=== PATIENT | male | born 1990 | race Two or more races ===

== ENCOUNTER 2021-03-01 15:40 | Inpatient (IN) | payer BC, OTHER, SELFPAY ==
[~2021-03-01] VITALS: Ht 172.7 cm; Wt 101.0 kg
[2021-03-01] MEDS ORDERED: FLUO10CA16 PO ×2 (16:01→22:20)
[2021-03-01] MEDS ORDERED: HYDR50TA70 PO ×2 (16:01→22:20)
[2021-03-01 16:42] LABS: BASO % 0.3 % (0.0-1.0); EOS # 0.1 10^3/uL (0.0-0.5); EOS % 0.9 % (0.0-3.0); HEMATOCRIT 44.7 % (42.0-52.0); HEMOGLOBIN 14.7 g/dl (13.5-17.5); LYMPH # 1.8 10^3/uL (1.5-5.0); LYMPH % 17.8 % (24.0-44.0); MEAN CORPUSCULAR HEMOGLOBIN 27.5 pg (27.0-33.0); MEAN CORPUSCULAR HGB CONC 32.9 g/dl (32.0-36.5); MEAN CORPUSCULAR VOLUME 83.7 fl (80.0-96.0); MONO # 0.9 10^3/uL (0.0-0.8); MONO % 8.3 % (2.0-8.0); NEUTROPHILS # 7.4 10^3/uL (1.5-8.5); NEUTROPHILS % 72.2 % (36.0-66.0); PLATELET COUNT, AUTOMATED 252 10^3/uL (150-450); RED BLOOD COUNT 5.34 10^6/uL (4.30-6.10); WHITE BLOOD COUNT 10.3 10^3/uL (4.0-10.0)
[2021-03-01] MEDS: NS 1,000 ML IV SCH ×2 (16:46→22:51)
[2021-03-01 17:12] LABS: ACETAMINOPHEN LEVEL < 2.0 UG/ML (10.0-30.0); ALBUMIN 3.9 GM/DL (3.2-5.2); ALT/SGPT 34 U/L (12-78); BILIRUBIN,DIRECT < 0.1 MG/DL (0.0-0.2); BILIRUBIN,TOTAL 0.3 MG/DL (0.2-1.0); BLOOD UREA NITROGEN 18 MG/DL (7-18); CALCIUM LEVEL 8.5 MG/DL (8.5-10.1); CARBON DIOXIDE LEVEL 25 MEQ/L (21-32); CHLORIDE LEVEL 110 MEQ/L (98-107); CPK CREATINE PHOSPHOKINASE 441 U/L (39-308); CREATININE FOR GFR 1.24 MG/DL (0.70-1.30); GLOMERULAR FILTRATION RATE > 60.0 (>60); GLUCOSE, FASTING 82 MG/DL (70-100); POTASSIUM SERUM 4.1 MEQ/L (3.5-5.1); SALICYLATE LEVEL < 1.7 MG/DL (5.0-30.0); SODIUM LEVEL 141 MEQ/L (136-145); THYROID STIMULATING HORMONE 0.741 uIU/ML (0.358-3.740); TOTAL PROTEIN 7.1 GM/DL (6.4-8.2)
[2021-03-01 17:13] LABS: ETHYL ALCOHOL (ETHANOL) < 0.003 % (0.000-0.010)
[2021-03-01 18:48] LABS: AMPHETAMINES LEVEL URINE NEGATIVE (NEGATIVE); BARBITURATES URINE NEGATIVE (NEGATIVE); BENZODIAZEPINES URINE NEGATIVE (NEGATIVE); CANNABINOIDS URINE NEGATIVE (NEGATIVE); COCAINE METABOLITE URINE NEGATIVE (NEGATIVE); METHADONE URINE NEGATIVE (NEGATIVE); OPIATES URINE NEGATIVE (NEGATIVE); PHENCYCLIDINE URINE NEGATIVE (NEGATIVE)
[2021-03-01] MEDS ORDERED: HOME MED LIST COMPLETE! XX SCH (22:25)
[2021-03-02 00:47] LABS: RSV AMPLIFICATION NEGATIVE (NEGATIVE)
[2021-03-02] MEDS ORDERED: MOM 30ML SUSPENSION UDC PO PRN (01:40)
[2021-03-02] MEDS ORDERED: MAALOX 30 ML SUSP *UDC PO PRN (01:40)
[2021-03-02] MEDS ORDERED: ACETAMINOPHEN TAB 650MG DOSE (2X325MG) PO PRN (01:40)
[2021-03-02 02:15] VITALS: BP 135/89
--- NOTE | 2021-03-02 07:55 | ECGEPIP ---
[facility] - ED Test Date: 2021-03-01 Pat Name: BRENT LOVELACE Department: Room: - Gender: Male Medical Transcription Supervisor: JAS : 1990 Requested By: JANA Chase Order Number: [id number] Reading MD: Baljinder Santiago Measurements Intervals [place] Rate: 83 P: 13 [place]: 140 QRS: 58 QRSD: 96 T: 2 QT: 408 QTc: 479 Interpretive Statements Normal sinus rhythm Nonspecific T wave abnormality Prolonged QT NO PRIORS FOR COMPARISON Electronically Signed on 03-02-2021 7:55:00 EDT by Baljinder Santiago
--- NOTE | 2021-03-02 08:03 | ECGEPIP ---
[facility] - ED Test Date: 2021-03-01 Pat Name: BRENT LOVELACE Department: Room: [place] [address] Gender: Male Seamer Operator: SHANDRA : 1990 Requested By: GHAZALA Angeles Order Number: [id number] Reading MD: Baljinder Santiago Measurements Intervals [place] Rate: 56 P: 19 AL: 128 QRS: 69 QRSD: 106 T: 29 QT: 476 QTc: 459 Interpretive Statements Sinus bradycardia with sinus arrhythmia Nonspecific T wave abnormality SIMILAR TO PRIOR ON SAME DATE Electronically Signed on 03-02-2021 8:02:44 EDT by Baljinder Santiago
[2021-03-02 08:36] VITALS: BP 146/80
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
[2021-03-02] MEDS: hydrOXYzine 50 MG TAB PO SCH ×2 (11:58→20:34)
[2021-03-02] MEDS: FLUoxetine 10 MG CAP PO SCH (11:59)
[2021-03-02 16:35] VITALS: BP 131/74
[2021-03-02] MEDS: traZODone 50 MG TAB PO PRN (20:35)
[2021-03-03 06:45] VITALS: BP 112/71
[2021-03-03] MEDS: FLUoxetine 10 MG CAP PO SCH (09:04)
[2021-03-03] MEDS: hydrOXYzine 50 MG TAB PO SCH ×2 (09:04→20:33)
--- NOTE | 2021-03-03 10:31 | HPEPDOC ---
[facility] Medical History & Physical Date of Admission Mar 03, 2021 Date of Service: Mar 03, 2021 History and Physical CHIEF COMPLAINT: "I tried to kill myself" HISTORY OF PRESENT ILLNESS: 31-year-old male with a past medical history of depression and suicidal ideations presented to the hospital after he consumed alcohol and subsequently try to commit suicide by taking Advil and hydroxyzine. He reported he began to drink and made this attempt around 4 AM and woke up the next day around noon by a phone call by his clinical systems educator. he reports he did this because of all the events that took place in his life. Presently, he denied feeling suicidal and said his mood was " okay". He denies headaches, chest pain, shortness of breath, abdominal pain, nausea, vomiting, problems with urination and bowel movements. He denies fevers, chills, arthralgias, and myalgias. PAST MEDICAL HISTORY: Psychiatric history as mentioned above. PAST SURGICAL HISTORY: Denies SOCIAL HISTORY: He reports having a rough upbringing. He now lives alone and maintains a job at [employer]. He endorses smoking a vape, drinking daily, and using marijuana at times. FAMILY HISTORY: Denies any family history ALLERGIES: Please see below. REVIEW OF SYSTEMS: 10 point review of system negative except for what is noted in the HPI HOME MEDICATIONS: Please see below. PHYSICAL EXAMINATION: General: Lying in bed, no acute distress Head/Neck/Throat: Trachea midline, mucous membranes moist Eyes: Sclera anicteric, PERRLA Thorax: Normal respiratory effort on room air, lungs clear to auscultation bilaterally, no wheezes/rales/rhonchi Cardiovascular: Normal rate, regular rhythm, normal S1, S2; no S3, S4, rubs/gallops/murmurs Abdomen: Bowel sounds present, soft/nontender/nondistended Genitourinary: No CVA tenderness, no Gutiérrez in place Musculoskeletal: Moving all extremities, no edema Skin: Warm, dry Neurologic: AAOx3, speech fluent and goal-directed, no focal deficits, grossly intact LABORATORY DATA: See below. IMAGING: None in EMR for this visit. MICROBIOLOGY: Please see below. ASSESSMENT/PLAN: #Elevated creatinine kind -Likely secondary to his drinking and being found on the ground. Presently denies myalgias. Repeat creatinine kinase as well as BMP to ensure levels are trending down and renal function is stable, respectfully. Encouraged hydration. #Suicide attempt -Management as per psychiatric team. #Polysubstance abuse -Encouraged abstinence from smoking, drinking, and recreational drugs. #DVT prophylaxis -Encourage ambulation Patient was seen and examined with a female wardrobe custodian Vital Signs Vital Signs Date Time Temp Pulse Resp B/P (MAP) Pulse Ox O2 Delivery O2 Flow Rate FiO2 03/03/21 06:45 97.8 68 18 112/71 (85) 100 Room Air Home Medications Scheduled Fluoxetine Hcl (Fluoxetine HCl) 10 Mg Capsule, 10 MG PO DAILY Hydroxyzine HCl (Hydroxyzine HCl) 50 Mg Tablet, 50 MG PO BID Allergies Coded Allergies: No Known Allergies (Unverified , 03/01/21) A-FIB/CHADSVASC A-FIB History Current/History of A-Fib/PAF?: No GAYLE LYNCH M.D. Mar 03, 2021 10:24
--- NOTE | 2021-03-03 10:58 | MHIPNPDOC ---
[facility] Progress Note Progress Note DATE OF SERVICE: 03/03/21 Patient is on n.p.o. waiting for ultrasound and is fully cooperating with treatment. He is in no acute distress and smiling later and maintaining good control. He is denying any more suicidal plan or intent and is cooperating with his medications and has no new complaints. HISTORY:. VITAL SIGNS: See below. NEW TEST RESULTS:. CURRENT MEDICATIONS: See below. MENTAL STATUS EXAMINATION: Patient is a 31-year old male, who is in good control. Speech: Is relevant. Language skills are fair. Thought processes including: Rational. Thought content: Denies any suicidal plan or intent. Abstract reasoning, and computation: Fair. Description of associations: Organized. Description of abnormal or psychotic thoughts: Denies any psychotic symptoms. Judgment: Poor. Insight: Fair. Orientation: Oriented. Recent and remote memory: No gross impairment. Attention span and concentration: Fair. Language:. Fund of knowledge:. Mood: Moderately anxious and depressed. Affect: Appropriate. DIAGNOSES: 1.. Major depression 2.. 3.. ASSESSMENT: Cooperating with the treatment MANAGEMENT PLAN: Needs stabilization. TIME SPENT: 50 minutes. Vital Signs Vital Signs Date Time Temp Pulse Resp B/P (MAP) Pulse Ox O2 Delivery O2 Flow Rate FiO2 03/03/21 06:45 97.8 68 18 112/71 (85) 100 Room Air Current Medications Current Medications Medications (Trade) Dose Ordered Sig/Desi Route PRN Reason Start Time Stop Time Status Last Admin Dose Admin Acetaminophen (Tylenol Tab) 650 mg Q6HP PRN PO HEADACHE or MILD DISCOMFORT 03/02/21 01:40 Al Hydrox/Mg Hydrox/Simethicone (Mylanta) 30 ml Q4HP PRN PO HEARTBURN/INDIGESTION 03/02/21 01:40 Fluoxetine HCl (PROzac) 10 mg DAILY PO 03/02/21 09:00 03/03/21 09:04 Home Med (Home Med List Complete!) ASDIRECTED XX 03/01/21 22:25 03/01/21 22:23 DC Hydroxyzine HCl (Atarax) 50 mg BID PO 03/02/21 09:00 03/03/21 09:04 Lorazepam (Ativan) 1 mg Q4HP PRN PO ANXIETY/AGITATION 03/02/21 01:40 Magnesium Hydroxide (Milk Of Magnesia) 30 ml DAILYPRN PRN PO CONSTIPATION 03/02/21 01:40 Sodium Chloride 1,000 ml @ 150 mls/hr Q6H40M IV 03/01/21 16:20 03/01/21 22:53 DC 03/01/21 16:46 Trazodone HCl (Desyrel) 50 mg QHSP PRN PO INSOMNIA 03/02/21 01:40 03/02/21 20:35 Allergies Coded Allergies: No Known Allergies (Unverified , 03/01/21) REMY BARAKAT M.D. Mar 03, 2021 10:58
[2021-03-03 16:51] VITALS: BP 140/92
[2021-03-03] MEDS: traZODone 50 MG TAB PO PRN (20:33)
[2021-03-04 05:38] VITALS: BP 142/80
[2021-03-04] MEDS: hydrOXYzine 50 MG TAB PO SCH ×2 (08:36→20:35)
[2021-03-04] MEDS: FLUoxetine 10 MG CAP PO SCH (08:36)
--- NOTE | 2021-03-04 09:16 | REP ---
INDICATION: ABNORMAL FINDINGS ON DX IMAGING OF LIVER AND BILIA. COMPARISON: None. TECHNIQUE: Multiple ultrasonographic images of the abdominal right upper quadrant. FINDINGS: There is no cholelithiasis, gallbladder wall thickening or pericholecystic fluid. There is no intrahepatic or extrahepatic biliary duct dilatation. The common biliary duct measures 3.3 mm in diameter. There are limited views of the pancreas, the tail is obscured by bowel gas. The visualized areas of the pancreatic head and body are unremarkable. The right kidney is normal size measuring 11.8 x 5.9 x 4.9 cm. There is no right renal calculus, hydronephrosis, cystic mass or solid mass. There is no right upper quadrant free fluid. IMPRESSION: Essentially negative abdominal right upper quadrant ultrasound. The pancreatic tail is obscured by bowel gas. Clinical history states abnormal findings on DX imaging of the liver and BILIA. There are no comparison DX studies in our film file. <Electronically signed by Emmett Turner > 03/04/21 0941
--- NOTE | 2021-03-04 10:20 | MHIPNPDOC ---
[facility] Progress Note Progress Note DATE OF SERVICE: 03/04/21 Patient is reporting no new complaint and is fully cooperating with treatment. He had an ultrasound done and is eating and is pleasant on approach and respondi ng appropriately. He admits to taking overdose as a suicidal attempt but not able to elaborate the reason. He is tolerating Prozac okay and stated that he is feeling all right and does not have any active suicidal plan or thoughts at this time. We will increase his Prozac to 20 mg and continue with the supportive therapy HISTORY:. VITAL SIGNS: See below. NEW TEST RESULTS:. CURRENT MEDICATIONS: See below. MENTAL STATUS EXAMINATION: Patient is a 31-year old male, who is in no acute distress. Speech: Is relevant. Language skills are fair. Thought processes including: Coherent. Thought content: Denies any active suicidal thoughts. Abstract reasoning, and co mputation:. Description of associations: Organized. Description of abnormal or psychotic thoughts: Denies any hallucination or paranoia. Judgment: Fair. Insight: [Fair. Orientation: Oriented. Recent and remote memory: No gross impairment. Attention span and concentration:. Language:. Fund of knowledge:. Mood: Not feeling as depressed. Affect: Appropriate. DIAGNOSES: 1.. Major depression 2.. 3.. ASSESSMENT: Cooperating with the treatment and maintaining good control MANAGEMENT PLAN: Continue with increased the Prozac and supportive therapy. TIME SPENT: 15 minutes. Vital Signs Vital Signs Date Time Temp Pulse Resp B/P (MAP) Pulse Ox O2 Delivery O2 Flow Rate FiO2 03/04/21 05:38 98.7 64 18 142/80 (100) 100 Room Air Current Medications Current Medications Medications (Trade) Dose Ordered Sig/Desi Route PRN Reason Start Time Stop Time Status Last Admin Dose Admin Acetaminophen (Tylenol Tab) 650 mg Q6HP PRN PO HEADACHE or MILD DISCOMFORT 03/02/21 01:40 Al Hydrox/Mg Hydrox/Simethicone (Mylanta) 30 ml Q4HP PRN PO HEARTBURN/INDIGESTION 03/02/21 01:40 Fluoxetine HCl (PROzac) 10 mg DAILY PO 03/02/21 09:00 03/04/21 08:36 Home Med (Home Med List Complete!) ASDIRECTED XX 03/01/21 22:25 03/01/21 22:23 DC Hydroxyzine HCl (Atarax) 50 mg BID PO 03/02/21 09:00 03/04/21 08:36 Lorazepam (Ativan) 1 mg Q4HP PRN PO ANXIETY/AGITATION 03/02/21 01:40 Magnesium Hydroxide (Milk Of Magnesia) 30 ml DAILYPRN PRN PO CONSTIPATION 03/02/21 01:40 Sodium Chloride 1,000 ml @ 150 mls/hr Q6H40M IV 03/01/21 16:20 03/01/21 22:53 DC 03/01/21 16:46 Trazodone HCl (Desyrel) 50 mg QHSP PRN PO INSOMNIA 03/02/21 01:40 03/03/21 20:33 Allergies Coded Allergies: No Known Allergies (Unverified , 03/01/21) REMY BARAKAT M.D. Mar 04, 2021 10:20
[2021-03-04 16:37] VITALS: BP 138/72
[2021-03-04] MEDS: LORazepam 1 MG TAB PO PRN (16:53)
[2021-03-04] MEDS: traZODone 50 MG TAB PO PRN (20:35)
[2021-03-05 07:41] VITALS: BP 130/70
[2021-03-05] MEDS: FLUoxetine 20 MG CAP PO SCH (08:13)
[2021-03-05] MEDS: hydrOXYzine 50 MG TAB PO SCH ×2 (08:13→21:14)
--- NOTE | 2021-03-05 14:06 | MHIPNPDOC ---
[facility] Progress Note Progress Note DATE OF SERVICE: 03/05/21 HISTORY: Patient is a 31 -year-old single, , domiciled, male, who took an overdose of a bottle of Advil and hydroxyzine 50 mg x 10 tablets as a suicide attempt. Patient reports that he has had depression for many years states that his depression increased approximately 2 years ago. Patient has a legal history currently on probation for sexual offense of having possible pornography of underage people. Patient lives alone states that he had been drinking beer and at 3:30 in the morning he went to [employer] got a bottle of Advil and took 10 tablets of his hydroxyzine 50 mg as a suicide attempt. States he fell asleep and was awaken by phone call by his body care manager Constance. He told her about his suicide attempt in she called the police. He reports no other suicidal gestures or attempts in the past. States that his stressors are being on probation and his history of legal issues. PER ED REPORT: Pt was brought to the ED by his body care manager after taking an OD as a suicide attempt. Pt states that he took an OD of two bottles of Advil PM & 10 hydroxyzine at around 0500 as a suicide attempt. He states that his body care manager, Constance Mccollum from [facility], called him to check on him & he told her about the OD so she brought him to the ED. Pt denies HI. He denies any hx of suicide attempts or self-harm. Pt denies both AH & VH. He does not appear to be psychotic. Pt c/o depressed mood, anxiety, & poor sleep. When asked about stressors pt states "everything" but is unable to identify anything specific, other than that he is currently on probation for a sex offense. Pt reports a hx of depression, anxiety, & PTSD with no admissions. He has OP tx at [facility]. Pt reports daily MJ use, however, his tox screen was negative. He reports that he uses alcohol twice a month. VITAL SIGNS: See below. CURRENT MEDICATIONS: See below. MENTAL STATUS EXAMINATION: Patient is a 31 -year-old single, , domiciled, male, who took an overdose of a bottle of Advil and hydroxyzine 50 mg x 10 tablets as a suicide attempt. Speech: Is fluid, minimal conversation normal rate, tone and volume Language skills are intact Thought processes including: linear and goal oriented Thought content: reports depression and anxiety. Denies homicidal ideation, planning or intent.Admits to continued fleeting suicidal ideations, wanting to be . Abstract reasoning, and computation: fair Description of associations: denies, none observed Description of abnormal or psychotic thoughts: denies, none observed. Judgment: fair Insight: fair Orientation: alert and oriented to person, place, time and situation Recent and remote memory: intact Attention span and concentration: good Language: expansive Fund of knowledge: average Mood: Depressed Mood Affect: reactive DIAGNOSES: Major depressive disorder, single episode, severe Status post suicide attempt by overdose PTSD per history Generalized anxiety disorder per history sleep disturbance per history Tobacco use disorder Alcohol use disorder Cannabis use disorder ASSESSMENT: In today's interview patient reports continued fleeting suicidal ideations. States that he is fearful that he is facing senior living sentencing for his crimes. Supportive therapies and motivational interviewing today with patient. Patient was able to list off trauma stressors and states that much of his subsequent bad choices stems from his PTSD. Patient encouraged to use positive thinking. Reports continued depression and anxiety and intermittent poor sleep. He was reported to be isolative and withdrawn over the weekend. MANAGEMENT PLAN: Continue all medications and supportive therapies. Patient complains of Trazodone. Will discontinue and start Mirtazapine 7.5 mg. Probable discharge this week. TIME SPENT: 25 minutes. Vital Signs Vital Signs Date Time Temp Pulse Resp B/P (MAP) Pulse Ox O2 Delivery O2 Flow Rate FiO2 03/05/21 07:41 97.3 77 16 130/70 (90) 100 Room Air Current Medications Current Medications Medications (Trade) Dose Ordered Sig/Desi Route PRN Reason Start Time Stop Time Status Last Admin Dose Admin Acetaminophen (Tylenol Tab) 650 mg Q6HP PRN PO HEADACHE or MILD DISCOMFORT 03/02/21 01:40 Al Hydrox/Mg Hydrox/Simethicone (Mylanta) 30 ml Q4HP PRN PO HEARTBURN/INDIGESTION 03/02/21 01:40 Fluoxetine HCl (PROzac) 10 mg DAILY PO 03/02/21 09:00 03/04/21 10:18 DC 03/04/21 08:36 Fluoxetine HCl (PROzac) 20 mg DAILY PO 03/05/21 09:00 03/05/21 08:13 Home Med (Home Med List Complete!) ASDIRECTED XX 03/01/21 22:25 8/5/21 22:23 DC Hydroxyzine HCl (Atarax) 50 mg BID PO 03/02/21 09:00 03/05/21 08:13 Lorazepam (Ativan) 1 mg Q4HP PRN PO ANXIETY/AGITATION 03/02/21 01:40 03/04/21 16:53 Magnesium Hydroxide (Milk Of Magnesia) 30 ml DAILYPRN PRN PO CONSTIPATION 03/02/21 01:40 Sodium Chloride 1,000 ml @ 150 mls/hr Q6H40M IV 03/01/21 16:20 03/01/21 22:53 DC 03/01/21 16:46 Trazodone HCl (Desyrel) 50 mg QHSP PRN PO INSOMNIA 03/02/21 01:40 03/04/21 20:35 Allergies Coded Allergies: No Known Allergies (Unverified , 03/01/21) KANWAL MCNULTY NP Mar 05, 2021 13:59
[2021-03-05 16:30] VITALS: BP 158/100
[2021-03-05] MEDS: MIRTAZAPINE 7.5MG PER 1/2 TABLET PO SCH (21:14)
[2021-03-06 07:06] VITALS: BP_SYST 140; BP_SYST 147; BP_DIAS 87; BP_DIAS 91
[2021-03-06] MEDS: hydrOXYzine 50 MG TAB PO SCH ×2 (08:57→20:39)
[2021-03-06] MEDS: FLUoxetine 20 MG CAP PO SCH (08:57)
--- NOTE | 2021-03-06 11:34 | MHIPNPDOC ---
[facility] Progress Note Progress Note DATE OF SERVICE: 03/06/21 HISTORY: Patient is a 31 -year-old single, , domiciled, male, who took an overdose of a bottle of Advil and hydroxyzine 50 mg x 10 tablets as a suicide attempt. Patient reports that he has had depression for many years states that his depression increased approximately 2 years ago. Patient has a legal history currently on probation for sexual offense of having possible pornography of underage people. Patient lives alone states that he had been drinking beer and at 3:30 in the morning he went to [employer] got a bottle of Advil and took 10 tablets of his hydroxyzine 50 mg as a suicide attempt. States he fell asleep and was awaken by phone call by his complex care nurse practitioner Constance. He told her about his suicide attempt in she called the police. He reports no other suicidal gestures or attempts in the past. States that his stressors are being on probation and his history of legal issues. PER ED REPORT: Pt was brought to the ED by his child daycare worker after taking an OD as a suicide attempt. Pt states that he took an OD of two bottles of Advil PM & 10 hydroxyzine at around 0500 as a suicide attempt. He states that his child daycare worker, Constance Mccollum from [facility], called him to check on him & he told her about the OD so she brought him to the ED. Pt denies HI. He denies any hx of suicide attempts or self-harm. Pt denies both AH & VH. He does not appear to be psychotic. Pt c/o depressed mood, anxiety, & poor sleep. When asked about stressors pt states "everything" but is unable to identify anything specific, other than that he is currently on probation for a sex offense. Pt reports a hx of depression, anxiety, & PTSD with no admissions. He has OP tx at [facility]. Pt reports daily MJ use, however, his tox screen was negative. He reports that he uses alcohol twice a month. VITAL SIGNS: See below. CURRENT MEDICATIONS: See below. MENTAL STATUS EXAMINATION: Patient is a 31 -year-old single, , domiciled, male, who took an overdose of a bottle of Advil and hydroxyzine 50 mg x 10 tablets as a suicide attempt. Speech: Is fluid, minimal conversation normal rate, tone and volume Language skills are intact Thought processes including: linear and goal oriented Thought content: reports 8/10 depression and no anxiety. Denies homicidal ideation, planning or intent.Admits to continued fleeting suicidal ideations, wanting to be . Abstract reasoning, and computation: fair Description of associations: denies, none observed Description of abnormal or psychotic thoughts: denies, none observed. Judgment: fair Insight: fair Orientation: alert and oriented to person, place, time and situation Recent and remote memory: intact Attention span and concentration: good Language: expansive Fund of knowledge: average Mood: Depressed Mood Affect: reactive DIAGNOSES: Major depressive disorder, single episode, severe Status post suicide attempt by overdose PTSD per history Generalized anxiety disorder per history sleep disturbance per history Tobacco use disorder Alcohol use disorder Cannabis use disorder ASSESSMENT: In today's interview patient reports continued depression which he rates an 8/10. He was awakened for this interview and was very somber and disengaged. He had minimal responses in the interview. Patient reports that he is normally an 8 out of 10 depression. Patient reports excessive sleeping while he has been in the hospital. He denied suicidal ideation MANAGEMENT PLAN: Continue all medications and supportive therapies. Patient complains of Trazodone. Will discontinue and start Mirtazapine 7.5 mg. Probable discharge . TIME SPENT: 25 minutes. Vital Signs Vital Signs Date Time Temp Pulse Resp B/P (MAP) Pulse Ox O2 Delivery O2 Flow Rate FiO2 03/06/21 07:06 97.5 60 20 140/91 (107) 99 Room Air Current Medications Current Medications Medications (Trade) Dose Ordered Sig/Desi Route PRN Reason Start Time Stop Time Status Last Admin Dose Admin Acetaminophen (Tylenol Tab) 650 mg Q6HP PRN PO HEADACHE or MILD DISCOMFORT 03/02/21 01:40 Al Hydrox/Mg Hydrox/Simethicone (Mylanta) 30 ml Q4HP PRN PO HEARTBURN/INDIGESTION 03/02/21 01:40 Fluoxetine HCl (PROzac) 10 mg DAILY PO 03/02/21 09:00 03/04/21 10:18 DC 03/04/21 08:36 Fluoxetine HCl (PROzac) 20 mg DAILY PO 03/05/21 09:00 03/06/21 08:57 Home Med (Home Med List Complete!) ASDIRECTED XX 03/01/21 22:25 03/01/21 22:23 DC Hydroxyzine HCl (Atarax) 50 mg BID PO 03/02/21 09:00 03/06/21 08:57 Lorazepam (Ativan) 1 mg Q4HP PRN PO ANXIETY/AGITATION 03/02/21 01:40 03/04/21 16:53 Magnesium Hydroxide (Milk Of Magnesia) 30 ml DAILYPRN PRN PO CONSTIPATION 03/02/21 01:40 Mirtazapine (Remeron) 7.5 mg QHS PO 03/05/21 21:00 03/05/21 21:14 Sodium Chloride 1,000 ml @ 150 mls/hr Q6H40M IV 03/01/21 16:20 03/01/21 22:53 DC 03/01/21 16:46 Trazodone HCl (Desyrel) 50 mg QHSP PRN PO INSOMNIA 03/02/21 01:40 03/05/21 14:02 DC 03/04/21 20:35 Allergies Coded Allergies: No Known Allergies (Unverified , 03/01/21) KANWAL MCNULTY TANNING WHEEL OPERATOR Mar 06, 2021 11:34
[2021-03-06 18:16] VITALS: BP 138/88
[2021-03-06] MEDS: LORazepam 1 MG TAB PO PRN (20:39)
[2021-03-06] MEDS: MIRTAZAPINE 7.5MG PER 1/2 TABLET PO SCH (20:39)
[2021-03-07] MEDS: FLUoxetine 20 MG CAP PO SCH (08:47)
[2021-03-07] MEDS: hydrOXYzine 50 MG TAB PO SCH ×2 (08:47→20:35)
--- NOTE | 2021-03-07 14:04 | MHIPNPDOC ---
[facility] Progress Note Progress Note DATE OF SERVICE: 03/07/21 HISTORY: Patient is a 31 -year-old single, , domiciled, male, who took an overdose of a bottle of Advil and hydroxyzine 50 mg x 10 tablets as a suicide attempt. Patient reports that he has had depression for many years states that his depression increased approximately 2 years ago. Patient has a legal history currently on probation for sexual offense of having possible pornography of underage people. Patient lives alone states that he had been drinking beer and at 3:30 in the morning he went to [employer] got a bottle of Advil and took 10 tablets of his hydroxyzine 50 mg as a suicide attempt. States he fell asleep and was awaken by phone call by his child care team lead Constance. He told her about his suicide attempt in she called the police. He reports no other suicidal gestures or attempts in the past. States that his stressors are being on probation and his history of legal issues. PER ED REPORT: Pt was brought to the ED by his patient care associate after taking an OD as a suicide attempt. Pt states that he took an OD of two bottles of Advil PM & 10 hydroxyzine at around 0500 as a suicide attempt. He states that his patient care associate, Constance Mccollum from [facility], called him to check on him & he told her about the OD so she brought him to the ED. Pt denies HI. He denies any hx of suicide attempts or self-harm. Pt denies both AH & VH. He does not appear to be psychotic. Pt c/o depressed mood, anxiety, & poor sleep. When asked about stressors pt states "everything" but is unable to identify anything specific, other than that he is currently on probation for a sex offense. Pt reports a hx of depression, anxiety, & PTSD with no admissions. He has OP tx at [facility]. Pt reports daily MJ use, however, his tox screen was negative. He reports that he uses alcohol twice a month. VITAL SIGNS: See below. CURRENT MEDICATIONS: See below. MENTAL STATUS EXAMINATION: Patient is a 31 -year-old single, , domiciled, male, who took an overdose of a bottle of Advil and hydroxyzine 50 mg x 10 tablets as a suicide attempt. Speech: Is fluid, minimal conversation normal rate, tone and volume Language skills are intact Thought processes including: linear and goal oriented Thought content: continues to report 8/10 depression and no anxiety. Denies suicidal h/micidal ideation, planning or intent. Abstract reasoning, and computation: fair Description of associations: denies, none observed Description of abnormal or psychotic thoughts: denies, none observed. Judgment: fair Insight: fair Orientation: alert and oriented to person, place, time and situation Recent and remote memory: intact Attention span and concentration: good Language: expansive Fund of knowledge: average Mood: Euthymic Mood Affect: Constricted DIAGNOSES: Major depressive disorder, single episode, severe Status post suicide attempt by overdose PTSD per history Generalized anxiety disorder per history sleep disturbance per history Tobacco use disorder Alcohol use disorder Cannabis use disorder ASSESSMENT: Patient reports that his depression is at baseline, he reported in yesterday's session that his baseline depression rating is 8/10. He has been minimally social with peers, attending and participating in groups. He was started on his home medication of Prozac and that was increased to 20 mg during this hospitalization. He did not reported any anxiety during the interview. He denies suicidal ideations. States that his plans are to return to work but wants to clean his apartment. Spoke with Psychiatric Rn who has left messages for Nutritionalist and his Plant Reliability Engineer who is picking him up tomorrow. Patient states that he works 50+ a week. Patient is somewhat detached and reports no to low supports. He reports that he feels that he may be incarcerated for legal charges. It appears that much of this suicidal ideations stems from this. Ironically patients' labs and blood alcohol content does not support his report that he had been drinking and took an overdose of two bottles of Advil PM, lab results had low salicylate levels and he had a negative alcohol content. MANAGEMENT PLAN: Continue all medications and supportive therapies. Discharge . TIME SPENT: 25 minutes. Vital Signs Vital Signs Date Time Temp Pulse Resp B/P (MAP) Pulse Ox O2 Delivery O2 Flow Rate FiO2 03/06/21 18:16 97.8 95 16 138/88 (105) 97 03/06/21 07:06 Room Air Current Medications Current Medications Medications (Trade) Dose Ordered Sig/Desi Route PRN Reason Start Time Stop Time Status Last Admin Dose Admin Acetaminophen (Tylenol Tab) 650 mg Q6HP PRN PO HEADACHE or MILD DISCOMFORT 03/02/21 01:40 Al Hydrox/Mg Hydrox/Simethicone (Mylanta) 30 ml Q4HP PRN PO HEARTBURN/INDIGESTION 03/02/21 01:40 Fluoxetine HCl (PROzac) 10 mg DAILY PO 03/02/21 09:00 03/04/21 10:18 DC 03/04/21 08:36 Fluoxetine HCl (PROzac) 20 mg DAILY PO 03/05/21 09:00 03/07/21 08:47 Home Med (Home Med List Complete!) ASDIRECTED XX 03/01/21 22:25 03/01/21 22:23 DC Hydroxyzine HCl (Atarax) 50 mg BID PO 03/02/21 09:00 03/07/21 08:47 Lorazepam (Ativan) 1 mg Q4HP PRN PO ANXIETY/AGITATION 03/02/21 01:40 03/06/21 20:39 Magnesium Hydroxide (Milk Of Magnesia) 30 ml DAILYPRN PRN PO CONSTIPATION 03/02/21 01:40 Mirtazapine (Remeron) 7.5 mg QHS PO 03/05/21 21:00 03/06/21 20:39 Sodium Chloride 1,000 ml @ 150 mls/hr Q6H40M IV 03/01/21 16:20 03/01/21 22:53 DC 03/01/21 16:46 Trazodone HCl (Desyrel) 50 mg QHSP PRN PO INSOMNIA 03/02/21 01:40 03/05/21 14:02 DC 03/04/21 20:35 Allergies Coded Allergies: No Known Allergies (Unverified , 03/01/21) KANWAL MCNULTY WAREHOUSE DELIVERY DRIVER Mar 07, 2021 14:04
[2021-03-07 17:41] VITALS: BP 125/64
[2021-03-07] MEDS: MIRTAZAPINE 7.5MG PER 1/2 TABLET PO SCH (20:35)
[2021-03-08 06:23] VITALS: BP 124/76
[2021-03-08] MEDS: FLUoxetine 20 MG CAP PO SCH (08:54)
[2021-03-08] MEDS: hydrOXYzine 50 MG TAB PO SCH (08:54)
[2021-03-08] MEDS ORDERED: MIRT-62 PO (12:21)
[2021-03-08] MEDS ORDERED: FLUO20CA22 PO (12:21)
[2021-03-08] MEDS ORDERED: HYDR50TA70 PO (12:22)
--- NOTE | 2021-03-08 14:58 | MHDSPDOC ---
[facility] Discharge Summary Discharge Summary DATE OF ADMISSION: Mar 02, 2021 at 01:39 DATE OF DISCHARGE: Mar 08, 2021 at 13:25 DISCHARGE DIAGNOSES: Major depressive disorder, single episode, severe Status post suicide attempt by overdose PTSD per history Generalized anxiety disorder per history sleep disturbance per history Tobacco use disorder Alcohol use disorder Cannabis use disorder REASON FOR ADMISSION: Patient is a 31 -year-old single, , domiciled, male, who took an overdose of a bottle of Advil and hydroxyzine 50 mg x 10 tablets as a suicide attempt. Patient reports that he has had depression for many years states that his depression increased approximately 2 years ago. Patient has a legal history currently on probation for sexual offense of having possible pornography of underage people. Patient lives alone states that he had been drinking beer and at 3:30 in the morning he went to [employer] got a bottle of Advil and took 10 tablets of his hydroxyzine 50 mg as a suicide attempt. States he fell asleep and was awaken by phone call by his animal caretaker supervisor Constance. He told her about his suicide attempt in she called the police. He reports no other suicidal gestures or attempts in the past. States that his stressors are being on probation and his history of legal issues. PER ED REPORT: Pt was brought to the ED by his rn acute care after taking an OD as a suicide attempt. Pt states that he took an OD of two bottles of Advil PM & 10 hydroxyzine at around 0500 as a suicide attempt. He states that his rn acute care, Constance Mccollum from [facility], called him to check on him & he told her about the OD so she brought him to the ED. Pt denies HI. He denies any hx of suicide attempts or self-harm. Pt denies both AH & VH. He does not appear to be psychotic. Pt c/o depressed mood, anxiety, & poor sleep. When asked about stressors pt states "everything" but is unable to identify anything specific, other than that he is currently on probation for a sex offense. Pt reports a hx of depression, anxiety, & PTSD with no admissions. He has OP tx at [facility]. Pt reports daily MJ use, however, his tox screen was negative. He reports that he uses alcohol twice a month. VITAL SIGNS: See below. CONSULTANTS INVOLVED: See Medical H + P by Hospitalist TREATMENT AND PROGRESS ON THE UNIT: Patient was admitted to the [facility] on a 9.39 legal status he was afforded the following treatment modalities: 1) Individual Therapy 2) Group Therapy 3) Medication Management 4) Milieu Therapy 5) Safe Environment HOSPITAL COURSE: Patient was admitted to [facility] on a 9.39 legal status. He was restarted on his home medications with an increase of his Fluoxetine. He did not tolerate Trazodone and complained of feeling tight in his chest. Mirtazapine 7.5 mg ordered for sleep. Pt found medications beneficial and tolerated them well. Much of his anxiety stemmed from his legal charges and fear of incarceration and poor supportive people in his life. He reported that his mood, anxiety, and intrusive thoughts improved with treatment. Pt attended groups daily during stay. Pts symptoms improved with treatment. On day of discharge he denied depression, anxiety, insomnia, SI/HI, hallucinations, delusions. Pt was discharged home with follow-up with [facility]. Pt felt safe for discharge. DISCHARGE ASSESSMENT: In today's interview, patient is alert and oriented, pts dress is appropriate. Hygiene and grooming is well-kempt. Smiles on approach and is pleasant and engaged in the interview. Denies depression and anxiety. Denies suicidal and homicidal ideation, planning or intent. Denies and is not observed with miriam, psychotic symptoms of delusions, bizarre thinking, obsessions, paranoia, ruminations illogical thoughts, flight of ideas or having poor insight and judgement. Patient has normal mentation, declines further hospitalization on a voluntary status and meets criteria for discharge today. Patient encouraged to return to hospital if symptoms worsen or change and encouraged to call unit if he/she/they needs to speak to provider for questions regarding medications or care. MENTAL STATUS EXAMINATION ON DISCHARGE: Patient is a 31 -year-old single, , domiciled, male, who took an overdose of a bottle of Advil and hydroxyzine 50 mg x 10 tablets as a suicide attempt. Speech: Is fluid, minimal conversation normal rate, tone and volume Language skills are intact Thought processes including: linear and goal oriented Thought content: continues to report 8/10 depression and no anxiety. Denies suicidal/homicidal ideation, planning or intent. Abstract reasoning, and computation: fair Description of associations: denies, none observed Description of abnormal or psychotic thoughts: denies, none observed. Judgment: fair Insight: fair Orientation: alert and oriented to person, place, time and situation Recent and remote memory: intact Attention span and concentration: good Language: expansive Fund of knowledge: average Mood: Euthymic Mood Affect: Constricted MEDICATIONS ON DISCHARGE: See Medication Reconciliation PLAN/FOLLOWUP ARRANGEMENTS: Patient being discharged to home, his insurance case manager Constance is picking him up and he was a follow up appointment at [facility]. The amount of time spent in the coordination of care for this patient was appro ximately 25 minutes. ETOH/Disorder Med Rx ETOH/DRUG DISORDER RX: Offrd @ d/c & pt refused Vital Signs/I&Os Vital Signs Date Time Temp Pulse Resp B/P (MAP) Pulse Ox O2 Delivery O2 Flow Rate FiO2 03/08/21 06:23 97.8 56 18 124/76 (92) 98 Room Air Medications Scheduled Fluoxetine Hcl (Fluoxetine HCl) 20 Mg Capsule, 20 MG PO DAILY for Depression, #7 Mirtazapine (Remeron) 15 Mg Tablet, 7.5 MG PO QHS for Insomnia, #5 Take 1/2 tablet at bedtime Scheduled PRN Hydroxyzine HCl (Hydroxyzine HCl) 50 Mg Tablet, 50 MG PO BIDP PRN for ANXIETY/AGITATION, #14 Allergies Coded Allergies: No Known Allergies (Unverified , 03/01/21) KANWAL MCNULTY NP Mar 08, 2021 14:31
== END 2021-03-08 13:25 | disposition home or self-care (01) | DRG 751 ==
LOC: M ED 15:40 → M PSY 03-02 01:39 → UNDOADMIN 03-02 01:39 → M ED INP 03-02 01:39 → M PSY 03-06 16:40
PROVIDERS: ADMIT Psychiatry & Neurology Psychiatry; ATTEND Psychiatry & Neurology Psychiatry
DX: F32.2 Major depressive disorder, single episode, severe without psychotic features (principal); F43.10 Post-traumatic stress disorder, unspecified; F41.1 Generalized anxiety disorder; F17.290 Nicotine dependence, other tobacco product, uncomplicated; F12.10 Cannabis abuse, uncomplicated; Z91.5 Personal history of self-harm; Z20.822 Contact with and (suspected) exposure to COVID-19; Z79.899 Other long term (current) drug therapy; F10.10 Alcohol abuse, uncomplicated; R94.4 Abnormal results of kidney function studies; Z65.3 Problems related to other legal circumstances

== ENCOUNTER 2022-06-06 09:40 | Emergency (ER) | payer OTHER ==
[~2022-06-06 09:40] MED LIST: FLUO10CA18 PO; FLUO20CA22 PO; HYDR50TA70 PO; MIRT-62 PO
[2022-06-06 13:03] VITALS: BP 140/90
== END 2022-06-06 13:06 | disposition home or self-care (01) ==
LOC: M ED 09:40
DX: S90.212A Contusion of left great toe with damage to nail, initial encounter (principal); W22.8XXA Striking against or struck by other objects, initial encounter; Y92.099 Unspecified place in other non-institutional residence as the place of occurrence of the external cause; F41.9 Anxiety disorder, unspecified; F32.9 Major depressive disorder, single episode, unspecified; F43.10 Post-traumatic stress disorder, unspecified; Z79.899 Other long term (current) drug therapy

== ENCOUNTER → 2024-08-31 | Outpatient (REF) | payer OTHER ==
[~2024-08-31] MED LIST changes: +FLUO-290 PO; +FLUO-365 PO; -FLUO10CA18 PO; -FLUO20CA22 PO; -MIRT-62 PO; +MIRT-88 PO
[2024-08-31 18:04] LABS: BASO % 0.5 % (0.0-1.0); EOS # 0.2 10^3/uL (0.0-0.5); EOS % 2.7 % (0.0-3.0); HEMATOCRIT 47.3 % (42.0-52.0); HEMOGLOBIN 15.4 g/dl (13.5-17.5); LYMPH # 2.1 10^3/uL (1.5-5.0); LYMPH % 28.6 % (24.0-44.0); MEAN CORPUSCULAR HEMOGLOBIN 27.4 pg (27.0-33.0); MEAN CORPUSCULAR HGB CONC 32.6 g/dl (32.0-36.5); MEAN CORPUSCULAR VOLUME 84.2 fl (80.0-96.0); MONO # 0.6 10^3/uL (0.0-0.8); MONO % 8.5 % (2.0-8.0); NEUTROPHILS # 4.4 10^3/uL (1.5-8.5); PLATELET COUNT, AUTOMATED 217 10^3/uL (150-450); RED BLOOD COUNT 5.62 10^6/uL (4.30-6.10); WHITE BLOOD COUNT 7.5 10^3/uL (4.0-10.0)
[2024-08-31 18:37] LABS: PSA SCREENING 0.68 NG/ML (< 4.00)
[2024-08-31 18:42] LABS: THYROID STIMULATING HORMONE 1.275 uIU/ML (0.55-4.78)
[2024-08-31 18:46] LABS: FOLATE 20.5 NG/ML (>5.4); TESTOSTERONE 460 NG/DL (241-827); VITAMIN B12 LEVEL 519 PG/ML (211-911)
[2024-08-31 18:48] LABS: ALBUMIN 4.1 G/DL (3.2-5.2); ALKALINE PHOSPHATASE 62 U/L (40-129); ALT/SGPT 34 U/L (7.0-40); AST/SGOT 13 U/L (<34); BILIRUBIN,TOTAL 0.7 MG/DL (0.3-1.2); BLOOD UREA NITROGEN 15 MG/DL (9-23); CALCIUM LEVEL 9.5 MG/DL (8.5-10.1); CARBON DIOXIDE LEVEL 28 MMOL/L (20-31); CHLORIDE LEVEL 104 MMOL/L (98-107); CHOLESTEROL LEVEL 219 MG/DL (<200); CHOLESTEROL RISK RATIO 4.84 (<5); CREATININE FOR GFR 0.95 MG/DL (0.70-1.30); GLOMERULAR FILTRATION RATE > 60.0 (>60); GLUCOSE, FASTING 82 MG/DL (60-100); HDL CHOLESTEROL 45.2 MG/DL (>40); LDL CHOLESTEROL 102.8 MG/DL (<100); MAGNESIUM LEVEL 2.1 MG/DL (1.8-2.4); NON-HDL-C 173.8 MG/DL; POTASSIUM SERUM 4.9 MMOL/L (3.5-5.1); SODIUM LEVEL 142 MMOL/L (136-145); TOTAL PROTEIN 7.5 G/DL (5.7-8.2); TRIGLYCERIDES LEVEL 355 MG/DL (<150)
== END ==
LOC: M LAB REF 16:31
PROVIDERS: ATTEND Physician Assistant
DX: Z13.220 Encounter for screening for lipoid disorders (principal); F10.10 Alcohol abuse, uncomplicated; F52.1 Sexual aversion disorder; L65.9 Nonscarring hair loss, unspecified